=== PATIENT | female | born 1980 | race Hispanic/Latino ===

== ENCOUNTER 2024-06-12 14:19 | Emergency (ER) | payer BC, MEDICAID ==
[~2024-06-12] VITALS: Ht 160 cm; Wt 81.6 kg
--- NOTE | 2024-06-12 14:44 | ERN ---
General Chief Complaint: Lower Extremity Pain/Injury Stated Complaint: LEG INJURY Time Seen by MD: 14:20 Source: patient History of Present Illness Initial Comments PATIENT IS A 44-YEAR-OLD FEMALE COMING IN WITH LEFT CALF PAIN. PER PATIENT SHE WAS PLAYING TENNIS AND STEPPED INCORRECTLY SHE STATES HE FELT A SHARP PAIN IN HER CALF REGION SHORTLY AFTER THAT SHE STATES THAT SHE WAS UNABLE TO BEAR FULL WEIGHT. PAIN IS LOCALIZED TO THE LEFT CALF. Allergies: Coded Allergies: No Known Drug Allergies (Unverified Allergy, Unknown, 06/12/24) Past Medical History Past Medical History: No Pertinent History Past Surgical History: None ROS Dictation CONSTITUTIONAL: NO CHILLS, NO FEVER, NO WEAKNESS, NO DIAPHORESIS, NO MALAISE. HEAD/FACE: NO SIGNS OF TRAUMA. EENT: NO EYE PAIN, NO BLURRED VISION, NO TEARING, NO DOUBLE VISION, NO EAR PAIN, NO EAR DISCHARGE, NO NOSE PAIN, NO NASAL CONGESTION, NO THROAT PAIN, NO THROAT SWELLING, NO MOUTH PAIN. RESPIRATORY: NO COUGH, NO ORTHOPNEA, NO SOB, NO STRIDOR, NO WHEEZING. CARDIOVASCULAR: NO CHEST PAIN, NO EDEMA, NO PALPITATIONS, NO SYNCOPE. GASTROINTESTINAL/ABDOMINAL: NO ABDOMINAL PAIN, NO CONSTIPATION, NO DIARRHEA, NO NAUSEA, NO VOMITING. GENITOURINARY: NO ABNORMAL DISCHARGE, NO DYSURIA, NO FREQUENT URINATION, NO HEMATURIA. NO COMPLAINTS OF PAIN IN THE GENITALS. MUSCULOSKELETAL: NO BACK PAIN, NO GOUT, NO JOINT PAIN, NO JOINT SWELLING, MUSCLE PAIN, NO MUSCLE STIFFNESS, NO NECK PAIN. INTEGUMENTARY: NO CHANGE IN COLOR, NO CHANGE IN HAIR/NAILS, NO DRYNESS, NO LESION, NO LUMPS, NO RASH. NEUROLOGICAL/PSYCH: NO ANXIETY, NOT DEPRESSED, NO EMOTIONAL PROBLEM, NO HEADACHE, NO NUMBNESS, NO PRE-EXISTING DEFICIT, NO HISTORY OF SEIZURES, NO TREMORS, NO WEAKNESS. HEMATOLOGIC/LYMPHATIC: NOT ANEMIC, NO HISTORY OF BLOOD CLOTS, NO APPARENT BL EEDING, NO BRUISING, GLANDS NOT SWOLLEN. ALL SYSTEMS NEGATIVE, EXCEPT NOTED. Physical Exam Physical Exam Dictation VITAL SIGNS: REVIEWED. GENERAL APPEARANCE: ALERT, ORIENTED X3, NO ACUTE DISTRESS, OBESE. HEAD AND FACE: NON-TRAUMATIC. EYES: PERRL, PINK CONJUNCTIVAS, EYELID NO TRAUMA, ANTERIOR CHAMBER CLEAR. EARS: PINNAS INTACT AND NO SIGNS OF TRAUMA OR ERYTHEMA. EAR CANALS CLEAR AND NO DISCHARGE. TMS NO ERYTHEMA. NOSE: NO DISCHARGE, NO BLEEDING. OROPHARYNX: MOUTH NORMAL, TEETH NO CARIES, TONGUE PINK. PHARYNX CLEAR, NO ERYTHEMA. TONSILS NO EXUDATES, NO ABSCESSES NOTED. MUCOUS MEMBRANE MOIST. NECK: SUPPLE, NON-TENDER, NO THYROMEGALY, NO MASSES, NO JVD, NO BRUITS. BREAST: DEFERRED. CHEST: NO TENDERNESS, NO CREPITUS, NO PARADOXICAL MOVEMENT, NO RETRACTIONS. LUNGS: CLEAR, WELL-VENTILATED, SYMMETRIC, NO RALES, NO WHEEZING, NO RHONCHI, NO STRIDOR, GOOD BREATH SOUNDS BILATERALLY. HEART: REGULAR RATE, REGULAR RHYTHM, NO MURMUR, NO GALLOPS. VASCULAR: NO PERIPHERAL EDEMA. ABDOMEN: SOFT, POSITIVE BOWEL SOUNDS, NONDISTENDED, NO GUARDING, NONTENDER, NO REBOUND, NO MASSES NO HEPATOMEGALY, NO SPLENOMEGALY, NO ETIENNE'S SIGN, NO HERNIAS. RECTAL: DEFERRED. GENITAL: DEFERRED. NEUROLOGICAL: NORMAL SPEECH, GROSS MOTOR FUNCTION INTACT, GROSS SENSORY FUNCTION INTACT. MUSCULOSKELETAL: NECK NONTENDER, FULL RANGE OF MOTION, BACK NONTENDER, FULL RAN GE OF MOTION. EXTREMITIES: NONTENDER, FULL RANGE OF MOTION. PAIN ON PLANTAR FLEXION, PAIN ON PALPATION OF THE LEFT GASTROCNEMIUS, SKIN: COLOR PINK, DRY, NO TURGOR, NO RASH, NO LACERATIONS, NO ABRASIONS, NO CONTUSIONS. LYMPHATICS: DEFERRED. Results Laboratory and Microbiology Labs Reviewed?: Yes EKG/XRAY/US/CT/MRI Ultrasound Comment [address] [address] IMAGING REPORT Signed PATIENT: DIOR MAXWELL MR#: [id number] : 1980 SEX: F AGE: 44 LOCATION: [facility] ORDER 1434 STATUS: [facility] REPORT#: [id number] SERVICE 1432 REASON: LLE CALF PAIN ORDERING PHYSICIAN: CHAU SPENCER MD PROCEDURE: SOFT LOW E - US SOFT TISSUE LOWER EXTREMITY US SOFT TISSUE LOWER EXTREMITY REASON: LLE CALF PAIN. COMPARISON: None TECHNIQUE: Left calf ultrasound study was performed. FINDINGS: No sonographic evidence of mass or hematoma is seen. IMPRESSION: No acute finding. DICTATED BY: XENIA NEWSOME MD DATE: 06/12/24 154 ELECTRONICALLY SIGNED BY: XENIA NEWSOME MD DATE: 06/12/241543 [facility] MDM: DIFFERENTIAL DIAGNOSIS: CALF PAIN, MUSCLE STRAIN, RUPTURED GASTROCNEMIUS RATIONALE: TESTS CONSIDERED AND ORDERED SECONDARY TO SHARED DECISION MAKING INCLUDE: PREVIOUS OUTSIDE RECORDS REVIEWED: OLD ER VISITS. RISK OF COMPLICATION AND/OR MORBIDITY OR MORTALITY OF PATIENT MANAGEMENT: NONE PATIENT IS A 44-YEAR-OLD FEMALE COMING IN COMPLAINING OF LEFT CALF PAIN ULTRASOU ND DID NOT DISCLOSE ACUTE FINDINGS. POSTERIOR SPLINT WAS PLACED WELL CRUTCHES WERE GIVEN TO HELP ALLEVIATE THE PAIN. PATIENT WILL BE DISCHARGED IN STABLE CONDITION WITH A DIAGNOSIS OF HAS STRAIN. I DID ADVISED HER APPROPRIATE FOLLOW UP WITH BOILER ATTENDANT AND PCP FOR ONGOING EVALUATION AND MANAGEMENT IS A PAIN PERSISTS AT THE SITE OF SEVEN DAYS. I ALSO ADVISED RICE TECHNIQUE TO HELP WITH THE STRAIN. ED Course Orders Procedure Category Date Status Time Us Soft Tissue Lower US 06/12/24 Resulted Extremity 14:32 Orphenadrine Citrate PHA 06/12/24 Complete (Norflex) 15:00 Ibuprofen 600 Mg PHA 06/12/24 Complete Tablet (Motrin) 15:00 Current Medications Medications (Trade) Dose Ordered Sig/[place] Route PRN Reason Start Time Stop Time Status Last Admin Dose Admin Ibuprofen (moTRIN) 600 mg ONCE ONCE PO 06/12/24 15:00 06/12/24 15:01 DC 06/12/24 15:10 Orphenadrine Citrate (Norflex) 60 mg ONCE ONCE IM 06/12/24 15:00 06/12/24 15:01 DC 06/12/24 15:09 Vital Signs Date Time Temp Pulse Resp B/P (MAP) Pulse Ox O2 Delivery O2 Flow Rate FiO2 06/12/24 14:24 98.6 61 16 157/92 97 Room Air 0 DX & DISP Disposition: Discharge Departure Impression: Primary Impression: Gastrocnemius strain, left Condition: Stable Scripts Naproxen (Naproxen) 500 Mg Tablet 1 TAB PO BID for pain for 7 Days, #14 TAB 0 Refills Prov: CHAU SPENCER MD 06/12/24 Methocarbamol (Robaxin) 750 Mg Tab 1 TAB PO BID for 7 Days, #14 TAB 0 Refills Prov: CHAU SPENCER MD 06/12/24 Additional Instructions: FOLLOW-UP WITH PRIMARY CARE PROVIDER IN 1 TO 2 DAYS. TAKE MEDICATIONS DIRECTED HERE IN THE EMERGENCY ROOM. OKAY TO CONTINUE HOME MEDICATIONS UNLESS OTHERWISE DISCUSSED DURING YOUR VISIT IN THE EMERGENCY ROOM TODAY. RETURN TO YOUR NEAREST EMERGENCY ROOM IF SYMPTOMS WORSEN OR IF THERE IS NO IMPROVEMENT. CALL 911 IF YOU NEED IMMEDIATE ASSISTANCE. TAKE TYLENOL [id number] NEEDED AND IF NO CONTRAINDICATIONS ARE PRESENT. INCREASE ORAL HYDRATION. A WOUND CULTURE OR URINE CULTURE WAS ORDERED HERE IN THE EMERGENCY ROOM DEPARTMENT PLEASE FOLLOW-UP WITH PRIMARY CARE PROVIDER AND ADVISE THEM TO GET REPEAT PORTS FROM OUR FACILITY. IF YOU HAD ANY GARRY WRAP/SPLINTS THAT WERE APPLIED HERE, PLEASE DO NOT REMOVE THEM UNTIL YOU SEE YOUR PRIMARY CARE OR SPECIALTY. REFERRALS: Referrals: SELF,REFERRAL (PCP) NICOLE VALDEZ MD, LUIS A MD Time of Disposition: 15:56 CHAU SPENCER MD June 12, 2024 14:44
[2024-06-12] MEDS: ORPHENADRINE 60MG/2ML IM ONE (15:09)
[2024-06-12] MEDS: ibuPROFEN 600 MG TABLET PO ONE (15:10)
--- NOTE | 2024-06-12 15:44 | HMCIMG ---
US SOFT TISSUE LOWER EXTREMITY REASON: LLE CALF PAIN. COMPARISON: None TECHNIQUE: Left calf ultrasound study was performed. FINDINGS: No sonographic evidence of mass or hematoma is seen. IMPRESSION: No acute finding.
[2024-06-12] MEDS ORDERED: NAPR-1194 PO (15:57)
[2024-06-12] MEDS ORDERED: METH-662 PO (15:57)
[2024-06-12 16:02] VITALS: BP 150/87; PULSE 60; RESP 16; TEMP 98.6; O2SAT 97
== END 2024-06-12 16:38 | disposition home or self-care (01) ==
LOC: EDH 14:19
DX: S86.811A Strain of other muscle(s) and tendon(s) at lower leg level, right leg, initial encounter (principal); X58.XXXA Exposure to other specified factors, initial encounter; Y93.73 Activity, racquet and hand sports; Y92.89 Other specified places as the place of occurrence of the external cause; Y99.8 Other external cause status
CPT/HCPCS: 76882; 96372; 99284; J2360